=== PATIENT | female | born 1995 | race Caucasian/White ===

== ENCOUNTER 2016-11-23 18:13 | Emergency (ER) | payer MEDICAID ==
[~2016-11-23] VITALS: Ht 157.5 cm; Wt 83.9 kg
--- NOTE | 2016-11-23 18:18 | NUR ---
C/O cough x 4 days with subjective fever, left ear pain.
[2016-11-23 18:21] VITALS: BP_SYST 109
--- NOTE | 2016-11-23 18:35 | NUR ---
Placed in triage, seen by Dr. Varela in triage.
--- NOTE | 2016-11-23 18:57 | NUR ---
Patient given written and verbal discharge instructions and verbalizes understanding. ER MD discussed with patient the results and treatment provided. Given copies of tests performed in ER. Patient in stable condition. ID arm band removed. Rx of Azithromycin, Motrin, Sudafed given. Patient educated on pain management and to follow up with PMD. Pain Scale 0/10. Opportunity for questions provided and answered.
== END 2016-11-23 19:04 | disposition home or self-care (01) ==
LOC: SED 18:13
DX: J40 Bronchitis, not specified as acute or chronic (principal); H92.09 Otalgia, unspecified ear
CPT/HCPCS: 99283